=== PATIENT | female | born 1960 | race Hispanic/Latino ===

== ENCOUNTER 2016-08-25 07:55 | Day surgery (SDC) | payer MEDICARE ==
[~2016-08-25] VITALS: Ht 154.9 cm; Wt 170.0 kg
[~2016-08-25 07:55] MED LIST: 0.9% Sodium Chloride 1,000 ML IV PRN; ACAR25TA2 PO; AMIT10TA6 PO; GABA-500 PO; GEMF600T3 PO; GLIP10TA10 PO; HYDR-4003 PO; IMI100 PO; LOVA40TA PO; METF10002 PO; OMEP20TA24 PO; ROSU5TAB PO; SERT20OR6 PO; Sodium Chloride LOK Flush 10 mL Syringe IV PRN; fentaNYL-PF 50 mCg/mL 2 mL Inj IVPUSH PRN
[2016-08-25 08:25] VITALS: BP 134/87; PULSE 77; RESP 12; O2SAT 97
--- NOTE | 2016-08-25 08:59 | PCM.ENDEGD ---
EGD Date of Service: Aug 25, 2016 Physician Neeraj Valdivia MD Pre Procedure Diagnosis: Abdominal pain Post Procedure Dx & Findings: Blunted folds of stomach. fat globules noted in the stomach content. Procedure Esophagogastroduodenoscopy PROCEDURE IN DETAIL: After proper sedation, Olympus video endoscope was inserted into patient's mouth and esophagus was successfully intubated. Scope introduced esophagus. Esophagus showed normal shiny whitish mucosa consistent with squamous cell component. Z line was intact at 38 cm from the incisors. Scope advanced to the stomach. Stomach showed normal shiny mucosa with blunted rugae folds without any ulcer mass erosion. Multiple biopsies obtained. Also in the stomach, there were some liquids that had fat globules. This was all suctioned. Cardia fundus body antrum pylorus were all visualized. Retroflexion was done. Stomach was easily inflated and deflatable using air. Scope further events to the distal duodenum. Duodenum revealed normal villous structures with normal appearing folds without any mass ulcer erosion. 5 Biopsies obtained for celiac disease. Impression Blunted gastric folds status post biopsies Normal duodenum status post biopsy for celiac Fat globules as a stomach contact which may indicate that she is on a high-fat diet. Recommendation Continue PPI as prescribed Low-fat diet and antireflux diet Follow up in GI clinic if abdominal pain persistent. Presedation Assessment Risks and Benefits Informed consent was obtained from the patient after all risks and benefits including but not limited to drug reaction, infection, pain, bleeding, perforation, as well as alternatives were discussed. Patient monitoring Continuous pulse oximetry, cardiac monitoring, blood pressure monitoring, IV access, and oxygen at 2L per nasal cannula. Periprocedural Fentanyl: Fentanyl 100mcg Incrementally Midazolam: Midazolam 5mg Incrementally Complications There were no periprocedural complications identified. Post Procedure Plan Post Procedure Recommendations 1. Restrict activities today. 2. Resume normal activities in the morning. 3. Resume medications. 4. GERD behavioral modification: - Avoid fatty, acidic, spicy, large meals - Do not lie down after meals - Do not eat or drink anything for at least 2 1/2 hours before going to bed at night - Discontinue tobacco and alcohol - Decrease or avoid caffeine - Avoid chocolate and mints - Decrease weight - Avoid aspirin and non steroidal anti-inflammatory agents (NSAID) such as Aleve, Advil, Mobic, Naproxen, Ibuprofen, etc 5. Add proton pump inhibitor. Take 30 minutes before 1st meal of the day. 6. Patient informed of normal post procedure side effects as bloating, drowsiness, blood streaking in the stool 7. If gastric biopsy reveal H.pylori, continue with appropriate treatment 8. If small bowel biopsy reveals celiac, continue with appropriate treatment 9. Please don't hesitate to call me with any questions Neeraj Valdivia MD Aug 25, 2016 08:59
[2016-08-25 09:03] VITALS: BP 130/86; PULSE 81; RESP 14; O2SAT 95
[2016-08-25 09:13] VITALS: BP 118/76; PULSE 79; RESP 14; O2SAT 95
[2016-08-25 09:17] VITALS: BP 100/80; PULSE 82; RESP 16; O2SAT 98
--- NOTE | 2016-08-26 14:03 | PATH ---
SURGICAL PATHOLOGY Attending Physician:Neeraj Valdivia M.D. CASE STATUS: Signed Out PATIENT NAME: YESICA HARVEY PID: [id number] : 1960 DATE COLLECTED:08/25/2016 19:36 SPECIMEN: 1: Duodenum, Biopsy 2: Gastric, Biopsy CLINICAL HISTORY: 1). DUODENUM BIOPSY 2). GASTRIC BIOPSY FINAL DIAGNOSIS: 1.DUODENUM, BIOPSY: DUODENAL MUCOSA WITH NO DIAGNOSTIC ALTERATIONS. Negative for inflammation, sprue, dysplasia, and malignancy. 2.GASTRIC BIOPSY: GASTRIC BODY MUCOSA WITH NO DIAGNOSTIC ALTERATIONS. Negative for Helicobacter organisms. Negative for intestinal metaplasia. Negative for dysplasia and malignancy. ICD10 code R10.13 GROSS DESCRIPTION: The specimen is received in two formalin filled containers labeled with the patient's name. 1). The specimen is sublabeled "duodenum" and consists of a 2 portions of tissue which aggregate to 0.3 x 0.3 x 0.3 CM. The specimen is entirely submitted in cassette 1A. 2). The specimen is sublabeled "gastric" and consists of 3 portions of tissue which aggregate to 0.4 x 0.4 x 0.2 CM. The specimen is entirely submitted in cassette 2A. 08/25/2016 [facility] MICRO DESCRIPTION: See diagnosis. ICD-9 CODES: CPT CODES: 1: 13855 2: 70242 Electronically Signed Out Donna Resendiz MD [facility] [address], [place] [address] Technical component performed at [facility], [facility] [address], [place], [address]
== END 2016-08-25 23:59 | disposition home or self-care (01) ==
LOC: END 07:55
PROVIDERS: ATTEND Internal Medicine
DX: K31.89 Other diseases of stomach and duodenum (principal); K21.9 Gastro-esophageal reflux disease without esophagitis; E11.9 Type 2 diabetes mellitus without complications; Z79.82 Long term (current) use of aspirin; Z79.84 Long term (current) use of oral hypoglycemic drugs
CPT/HCPCS: 43239; 88305; 99153; G0500; J2250; J3010; J7030